=== PATIENT | female | born 1960 ===

== ENCOUNTER 2021-05-09 10:03 | Emergency (ER) | payer BC, SELFPAY ==
[2021-05-09 10:31] VITALS: BP 104/67; PULSE 85; RESP 18; TEMP 36.8; O2SAT 97
--- NOTE | 2021-05-09 10:31 | ED.URI ---
HPI - URI/Sore Throat General Chief Complaint: Upper Respiratory Infection Stated Complaint: cough Time Seen by Provider: 05/09/21 10:31 Source: patient Mode of arrival: ambulatory Limitations: no limitations History of Present Illness HPI Narrative: Mariaa Vanessa is a 60 yo female with a PMH of hypertension who comes to express care with complaints of 3 days of fatigue and start wit fever of 100.5 today. has COVID and has been doing fine. She states she works from home and has not been around anyone Patient is fully vaccinated and boosted Related Data Home Medications Medication Instructions Recorded Confirmed enalapril maleate 10 mg DAILY 05/09/21 05/09/21 triamterene-hydrochlorothiazid 1 tablet DAILY 05/09/21 05/09/21 Allergies Allergy/AdvReac Type Severity Reaction Status Date / Time No Known Allergies Allergy Mild Verified 05/09/21 10:37 Review of Systems Review of Systems: CONSTITUTIONAL: Has fever, chills, sweats. EYES: Denies visual changes, redness, discharge. ENT: Denies rhinorrhea, mild congestion, sore throat, otalgia. CARDIOVASCULAR: Denies chest pain, palpitations, edema. RESPIRATORY: Denies dyspnea, wheezing, mild cough GASTROINTESTINAL: Denies abdominal pain, nausea, vomiting, diarrhea. GENITOURINARY: Denies dysuria, hematuria, abnormal discharge SKIN: Denies rash or itching. NEUROLOGIC: Denies numbness, or focal weakness. PSYCHIATRIC: Denies anxiety or depression. [facility] Past Medical History Medical History Hypertension Family History Family History Other Hypertension Social History Social History (Updated 05/09/21 @ 10:45 by Nicole Montalvo CNP) Smoking status: Never smoker Alcohol intake: current Comments At time of signature, I agree with nursing past medical, surgical, social and family history. There is no relevant family history pertinent to the presenting complaint. Exam Narrative: GENERAL: This is a well-nourished, well-developed patient, in mild distress. HEAD: normocephalic, atraumatic. EYES: . Sclera clear/white. Vision is grossly intact. EARS: External ears normal, auditory canals clear and without drainage, TMs normal without perforation. Hearing grossly intact. NOSE: External nose normal without nasal discharge, nares without redness, mild rhinorrhea. THROAT: Mucous membranes moist, posterior pharynx mild erythema NECK: Neck supple, non-tender CARDIOVASCULAR: Regular rate and rhythm without murmurs, gallops, or rubs. RESPIRATORY: Clear to auscultation. Breath sounds equal bilaterally. No wheezes, rales, or rhonchi. GASTROINTESTINAL: Not performed SKIN: warm, intact with no suspicious lesions or rash, good texture and turgor. NEURO: awake, alert, and oriented to person, place and time. There were no obvious focal neurologic abnormalities. Steady gait EXTREMITIES: Normal range of motion. BACK: Nontender without deformity Course Course Emergency Course: Patient complaining of fatigue x3 days and started having a fever this morning Rapid COVID is positive Started on Mucinex and cough medication Patient informed that she must be isolated for 5 days Level of Care: Express Care Visit Vital Signs Vital signs: Vital Signs Temperature 98.2 F 05/09/21 10:31 Pulse Rate 85 05/09/21 10:31 Respiratory Rate 18 05/09/21 10:31 Blood Pressure 104/67 05/09/21 10:31 Pulse Oximetry 97 05/09/21 10:31 Temperature 98.2 F 05/09/21 10:31 Pulse Rate 85 05/09/21 10:31 Respiratory Rate 18 05/09/21 10:31 Blood Pressure 104/67 05/09/21 10:31 Pulse Oximetry 97 05/09/21 10:31 MDM - URI/Sore Throat Differential Diagnosis Differential diagnosis: Likely upper respiratory infection, sinusitis, influenza and pharyngitis Lab Data Labs: Lab Results 05/09/21 Range/Units 10:35 POC SARS CoV-2 Ag Positive (Negative)
== END 2021-05-09 10:54 | disposition home or self-care (01) ==
PROVIDERS: Emergency Provider Nurse Practitioner
DX: U07.1 COVID-19 (principal); I10 Essential (primary) hypertension
CPT/HCPCS: 87426; 99213; C9803; G0463